=== PATIENT | female | born 1980 | race Caucasian/White ===

== ENCOUNTER 2025-07-04 06:27 | Day surgery (SDC) | payer OTHER ==
[~2025-07-04 06:27] MED LIST: Propofol 200 MG/20 ML SDV ONE
[2025-07-04] MEDS: Lactated Ringers 1,000 ML IV SCH (07:06)
[2025-07-04 09:04] VITALS: BP 121/57; PULSE 76
== END 2025-07-04 09:00 | disposition home or self-care (01) ==
LOC: DL.ENDO 06:27
PROVIDERS: ATTEND Internal Medicine Gastroenterology
DX: Z12.11 Encounter for screening for malignant neoplasm of colon (principal); E66.9 Obesity, unspecified
CPT/HCPCS: J7120